=== PATIENT | female | born 1950 | race Caucasian/White ===

== ENCOUNTER 2021-06-08 10:54 | Observation (INO) | payer MEDICARE ==
[2021-06-04 10:16] LABS: BASOPHILS # (AUTO) 0.1 (0.0-0.1); BASOPHILS % 1.3 % (0.0-1.0); EOSINOPHILS # (AUTO) 0.9 (0.0-0.4); HEMATOCRIT 46.2 % (34.2-44.1); HEMOGLOBIN 14.5 g/dL (12.0-16.0); LYMPHOCYTES # (AUTO) 2.7 (1.0-3.2); LYMPHOCYTES % 36.1 % (18.0-39.1); MEAN CORPUSCULAR HEMOGLOBIN 29.3 pg (28-32); MEAN CORPUSCULAR HGB CONC 31.4 g/dL (31-35); MEAN CORPUSCULAR VOLUME 93.3 fL (81-99); MONOCYTES # (AUTO) 0.5 (0.2-0.8); NEUTROPHILS # (AUTO) 3.2 (2.1-6.9); NEUTROPHILS % 43.5 % (38.7-80.0); PLATELET COUNT 296 x10e3/uL (140-360); RED BLOOD COUNT 4.95 x10e6/uL (3.6-5.1); RED CELL DISTRIBUTION WIDTH 14.7 % (11.7-14.4)
[2021-06-04 10:44] LABS: ALBUMIN 3.7 g/dL (3.5-5.0); ALBUMIN/GLOBULIN RATIO 0.9 (0.8-2.0); ANION GAP 14.4 mmol/L (8-16); CALCIUM 9.5 mg/dL (8.4-10.2); CREATININE, SERUM 0.79 mg/dL (0.57-1.11); POTASSIUM 4.4 mmol/L (3.5-5.1)
[2021-06-08] VITALS (16 sets, daily range): BP systolic 92–120; BP diastolic 41–61
[2021-06-08] MEDS ORDERED: FENTANYL CITRATE/PF 100MCG/2 ML INJ ONE (11:20)
[2021-06-08] MEDS ORDERED: MIDAZOLAM HCL 2 MG/2 ML VIAL ONE ×2 (11:20→12:52)
[2021-06-08] MEDS ORDERED: HEPARIN SOD/SOD CHLORIDE 2,000 ML ONE (11:21)
[2021-06-08] MEDS ORDERED: IOPAMIDOL 300MG/ML 100 ML INFUS..BTL IV ONE (11:21)
[2021-06-08] MEDS ORDERED: SODIUM CHLORIDE 0.9% 1000ML 1,000 ML ONE (11:21)
[2021-06-08] MEDS ORDERED: LIDOCAINE HCL 2% LOCAL 20 ML VIAL ONE (11:21)
[2021-06-08] MEDS ORDERED: ALPRAZOLAM 0.5 MG TAB ONE (11:25)
[2021-06-08] MEDS ORDERED: DIPHENHYDRAMINE HCL 25 MG CAP ONE (11:25)
[2021-06-08] MEDS ORDERED: LORATADINE10 MG PO (11:47)
[2021-06-08] MEDS ORDERED: FAMOTIDINE20 MG PO (11:47)
[2021-06-08] MEDS ORDERED: ASPIRIN 325 MG TAB ONE (13:15)
[2021-06-08] MEDS ORDERED: PRASUGREL 10 MG TAB ONE (13:15)
[2021-06-08] MEDS ORDERED: ATROPINE SULFATE 0.1 MG/ML 10ML SYR ONE (15:38)
[2021-06-08] MEDS ORDERED: ONDANSETRON HCL INJ 2MG/ML 2ML 2 MG/ML VIAL IV PRN (16:45)
[2021-06-08] MEDS ORDERED: SODIUM CHLORIDE 0.9% 1000ML 1,000 ML IV SCH (16:45)
[2021-06-08] MEDS ORDERED: ACETAMINOPHEN 325 MG TAB PO PRN (16:45)
[2021-06-08] MEDS ORDERED: ZOLPIDEM TARTRATE 5 MG TAB PO PRN (21:00)
[2021-06-09] VITALS: BP 137/70
[2021-06-09 04:00] VITALS: BP 114/69
[2021-06-09 07:39] VITALS: BP 118/59
[2021-06-09] MEDS ORDERED: LORATADINE 10 MG TAB PO SCH (09:00)
[2021-06-09] MEDS ORDERED: FAMOTIDINE 20 MG TAB PO SCH (09:00)
[2021-06-09 09:42] VITALS: BP 118/59
== END 2021-06-09 10:10 | disposition home or self-care (01) ==
LOC: CATH LAB 10:54 → MED/SURG2 17:00
PROVIDERS: ADMIT Internal Medicine Interventional Cardiology; ATTEND Internal Medicine Interventional Cardiology
DX: I70.211 Atherosclerosis of native arteries of extremities with intermittent claudication, right leg (principal)
CPT/HCPCS: 36415; 37186; 37225; 75625; 76937; 80053; 85025; 96360; C1769 ×2; C1887; C1894 ×2; C2623 ×2; G0378 ×2; J2001; J2250; J3010; J7030 ×2; Q9967; 36247; 37228; 37229; 75716; 99152; 99153

== ENCOUNTER → 2021-09-07 | Day surgery (SDC) | payer MEDICARE ==
[2021-09-02 12:17] LABS: BASOPHILS # (AUTO) 0.1 (0.0-0.1); BASOPHILS % 1.4 % (0.0-1.0); EOSINOPHILS # (AUTO) 1.4 (0.0-0.4); EOSINOPHILS % 13.8 % (0.0-6.0); HEMATOCRIT 43.4 % (34.2-44.1); HEMOGLOBIN 13.8 g/dL (12.0-16.0); LYMPHOCYTES # (AUTO) 3.1 (1.0-3.2); LYMPHOCYTES % 31.1 % (18.0-39.1); MEAN CORPUSCULAR HEMOGLOBIN 29.6 pg (28-32); MEAN CORPUSCULAR HGB CONC 31.8 g/dL (31-35); MEAN CORPUSCULAR VOLUME 92.9 fL (81-99); MONOCYTES # (AUTO) 0.6 (0.2-0.8); MONOCYTES % 6.1 % (4.4-11.3); NEUTROPHILS # (AUTO) 4.7 (2.1-6.9); NEUTROPHILS % 47.3 % (38.7-80.0); PLATELET COUNT 413 x10e3/uL (140-360); RED BLOOD COUNT 4.67 x10e6/uL (3.6-5.1); RED CELL DISTRIBUTION WIDTH 13.7 % (11.7-14.4)
[2021-09-02 12:48] LABS: ALBUMIN 3.4 g/dL (3.5-5.0); ALBUMIN/GLOBULIN RATIO 0.8 (0.8-2.0); ANION GAP 12.6 mmol/L (8-16); CALCIUM 8.8 mg/dL (8.4-10.2); CREATININE, SERUM 0.75 mg/dL (0.57-1.11); POTASSIUM 3.6 mmol/L (3.5-5.1)
[~2021-09-07] VITALS: Ht 160 cm; Wt 74.8 kg
[2021-09-07] VITALS (7 sets, daily range): BP systolic 108–125; BP diastolic 55–67
[~2021-09-07] MED LIST: ALPRAZOLAM 0.5 MG TAB ONE; ASPIRIN EC81 MG PO; ATORVASTATIN CA20 MG PO; DIPHENHYDRAMINE HCL 25 MG CAP ONE; FAMOTIDINE20 MG PO; FENTANYL CITRATE/PF 100MCG/2 ML INJ ONE; HEPARIN SOD (PORCINE) 1000 UNIT/ML 30ML ONE; HEPARIN SOD/SOD CHLORIDE 2,000 ML ONE; IOPAMIDOL 370 MG/ML 200 ML INFUS..BTL INJ ONE; LIDOCAINE HCL 2% LOCAL 20 ML VIAL ONE; LORATADINE10 MG PO; MIDAZOLAM HCL 2 MG/2 ML VIAL ONE; NITROGLYCERIN/D5W 200 MCG/ML 250 ML ONE; PLAVIX75 MG PO; SODIUM CHLORIDE 0.9% 1000ML 1,000 ML ONE; VERAPAMIL HCL 2.5 MG/ML 2 ML VIAL ONE
== END | disposition home or self-care (01) ==
LOC: CATH LAB 09:24
PROVIDERS: ATTEND Internal Medicine Interventional Cardiology
DX: I25.119 Atherosclerotic heart disease of native coronary artery with unspecified angina pectoris (principal); R94.39 Abnormal result of other cardiovascular function study; I73.9 Peripheral vascular disease, unspecified; Z01.812 Encounter for preprocedural laboratory examination; Z20.822 Contact with and (suspected) exposure to COVID-19; Z79.02 Long term (current) use of antithrombotics/antiplatelets; Z79.82 Long term (current) use of aspirin
CPT/HCPCS: 36415; 76937; 80053; 83880; 85025; 93454; C1887; C1894; J1644; J2001; J2250; J3010; J7030; Q9967; U0002; 99152

== ENCOUNTER 2022-01-02 10:46 | Inpatient (IN) | payer MEDICARE ==
[~2022-01-02] VITALS: Ht 160 cm; Wt 74.8 kg
[~2022-01-02 10:46] MED LIST changes: -ALPRAZOLAM 0.5 MG TAB ONE; -DIPHENHYDRAMINE HCL 25 MG CAP ONE; -FENTANYL CITRATE/PF 100MCG/2 ML INJ ONE; -HEPARIN SOD (PORCINE) 1000 UNIT/ML 30ML ONE; -HEPARIN SOD/SOD CHLORIDE 2,000 ML ONE; -IOPAMIDOL 370 MG/ML 200 ML INFUS..BTL INJ ONE; -LIDOCAINE HCL 2% LOCAL 20 ML VIAL ONE; -MIDAZOLAM HCL 2 MG/2 ML VIAL ONE; -NITROGLYCERIN/D5W 200 MCG/ML 250 ML ONE; -SODIUM CHLORIDE 0.9% 1000ML 1,000 ML ONE; -VERAPAMIL HCL 2.5 MG/ML 2 ML VIAL ONE
[2022-01-02] MEDS ORDERED: SODIUM CHLORIDE 0.9% 1000ML 1,000 ML IV STA ×2 (10:49→11:59)
[2022-01-02] MEDS ORDERED: ONDANSETRON HCL INJ 2MG/ML 2ML 2 MG/ML VIAL IV ONE (11:15)
[2022-01-02 11:18] LABS: BASOPHILS # (AUTO) 0.1 (0.0-0.1); BASOPHILS % 0.5 % (0.0-1.0); EOSINOPHILS # (AUTO) 0.5 (0.0-0.4); EOSINOPHILS % 2.9 % (0.0-6.0); HEMATOCRIT 45.9 % (34.2-44.1); HEMOGLOBIN 14.7 g/dL (12.0-16.0); LYMPHOCYTES # (AUTO) 3.3 (1.0-3.2); LYMPHOCYTES % 21.5 % (18.0-39.1); MEAN CORPUSCULAR HEMOGLOBIN 28.1 pg (28-32); MEAN CORPUSCULAR VOLUME 87.8 fL (81-99); MONOCYTES % 6.2 % (4.4-11.3); NEUTROPHILS # (AUTO) 10.4 (2.1-6.9); NEUTROPHILS % 67.9 % (38.7-80.0); PLATELET COUNT 359 x10e3/uL (140-360); RED BLOOD COUNT 5.23 x10e6/uL (3.6-5.1); RED CELL DISTRIBUTION WIDTH 16.3 % (11.7-14.4)
[2022-01-02 11:28] LABS: INR 0.91; PARTIAL THROMBOPLASTIN TIME 21.8 seconds (23.8-35.5); PROTHROMBIN TIME 13.1 seconds (11.9-14.5)
[2022-01-02 11:36] LABS: ALANINE AMINOTRANSFERASE 13 IU/L (0-55); ALBUMIN 3.2 g/dL (3.5-5.0); ALBUMIN/GLOBULIN RATIO 0.9 (0.8-2.0); ALKALINE PHOSPHATASE 43 IU/L (40-150); BLOOD UREA NITROGEN 21 mg/dL (7-26); BUN/CREATININE RATIO 21 (6-25); CALCIUM 8.8 mg/dL (8.4-10.2); CARBON DIOXIDE 18 mmol/L (22-29); CHLORIDE 105 mmol/L (98-107); CREATINE KINASE 9 IU/L (29-168); CREATININE, SERUM 0.98 mg/dL (0.57-1.11); EST GLOMERULAR FILTRATION RATE 56 ML/MIN (60-); GLUCOSE 99 mg/dL (74-118); MAGNESIUM 2.1 MG/DL (1.3-2.1); SODIUM 140 mmol/L (136-145)
[2022-01-02] MEDS ORDERED: SODIUM CHLORIDE 0.9% 1000ML 1,000 ML ONE (12:14)
[2022-01-02] MEDS ORDERED: PROMETHAZINE 12.5MG/ NACL 0.9% 12.5 MG/50 ML BAG IV ONE (12:30)
[2022-01-02] MEDS ORDERED: PROMETHAZINE 12.5MG/ NACL 0.9% 50 ML ONE (12:40)
[2022-01-02 12:47] LABS: CLARITY,URINE SL CLOUDY (CLEAR); COLOR,URINE YELLOW (YELLOW); LEUKOCYTE ESTERASE ,URINE NEGATIVE (NEGATIVE); NITRITE,URINE NEGATIVE (NEGATIVE); PROTEIN,URINE DIPSTICK 1+ (NEGATIVE)
[2022-01-02 12:48] LABS: KETONES,URINE 2+ (NEGATIVE); URINE UROBILINOGEN 1 mg/dL (0.2 - 1)
[2022-01-02 13:02] LABS: BACTERIA,URINE MODERATE /HPF; EPITHELIAL CELLS,URINE MODERATE /LPF; MUCUS,URINE MANY (RARE); RBC,URINE 0-5 /HPF (0-5)
[2022-01-02] MEDS ORDERED: ONDANSETRON HCL INJ 2MG/ML 2ML 2 MG/ML VIAL IV PRN (13:45)
[2022-01-02] MEDS ORDERED: PROMETHAZINE 12.5MG/ NACL 0.9% 12.5 MG/50 ML BAG IV PRN (13:45)
[2022-01-02] MEDS: SODIUM CHLORIDE 0.9% 1000ML 1,000 ML IV SCH (15:00)
[2022-01-02] MEDS: METOCLOPRAMIDE HCL 10 MG/2ML VIAL IV SCH (17:15)
[2022-01-02 17:49] VITALS: BP 116/45
[2022-01-02] MEDS ORDERED: CLOPIDOGREL75 MG PO (18:09)
[2022-01-02] MEDS ORDERED: CORTIZONE-1028 G1 TOP (18:09)
[2022-01-02] MEDS ORDERED: BENADRYL ITCH28.3 GM TOP (18:09)
[2022-01-02] MEDS ORDERED: DOXYCYCLINE HY100 MG PO (18:09)
[2022-01-02] MEDS ORDERED: METO (18:09)
[2022-01-02] MEDS ORDERED: PREDNISOLO15 MG/5 ML PO (18:09)
[2022-01-02] MEDS ORDERED: METOPROLOL TART25 MG PO (18:09)
[2022-01-02] MEDS ORDERED: BENZONATATE100 MG PO (18:09)
[2022-01-02 20:00] VITALS: BP 106/55
[2022-01-02 20:26] VITALS: BP 116/45
[2022-01-02 20:27] VITALS: BP 116/45
[2022-01-02] MEDS ORDERED: ATORVASTATIN 20 MG TAB PO SCH (21:00)
[2022-01-03] VITALS (9 sets, daily range): BP systolic 96–126; BP diastolic 52–71
[2022-01-03] MEDS: SODIUM CHLORIDE 0.9% 1000ML 1,000 ML IV SCH ×3 (02:30→09:25)
[2022-01-03] MEDS: LACTOBACILLUS ACIDOPHILUS CAPSULE PO SCH ×3 (02:35→16:20)
[2022-01-03 05:16] LABS: BASOPHILS # (AUTO) 0.1 (0.0-0.1); BASOPHILS % 0.6 % (0.0-1.0); EOSINOPHILS # (AUTO) 0.6 (0.0-0.4); EOSINOPHILS % 4.7 % (0.0-6.0); HEMATOCRIT 36.1 % (34.2-44.1); HEMOGLOBIN 11.3 g/dL (12.0-16.0); LYMPHOCYTES # (AUTO) 3.6 (1.0-3.2); LYMPHOCYTES % 29.4 % (18.0-39.1); MEAN CORPUSCULAR HEMOGLOBIN 28.3 pg (28-32); MEAN CORPUSCULAR HGB CONC 31.3 g/dL (31-35); MEAN CORPUSCULAR VOLUME 90.3 fL (81-99); MONOCYTES # (AUTO) 0.9 (0.2-0.8); MONOCYTES % 7.6 % (4.4-11.3); NEUTROPHILS # (AUTO) 6.9 (2.1-6.9); NEUTROPHILS % 56.5 % (38.7-80.0); PLATELET COUNT 277 x10e3/uL (140-360); RED CELL DISTRIBUTION WIDTH 16.1 % (11.7-14.4)
[2022-01-03 05:50] LABS: ALBUMIN 2.4 g/dL (3.5-5.0); ANION GAP 11.3 mmol/L (8-16); CALCIUM 7.4 mg/dL (8.4-10.2); CREATININE, SERUM 0.73 mg/dL (0.57-1.11); POTASSIUM 3.3 mmol/L (3.5-5.1)
[2022-01-03 05:56] LABS: CREATINE KINASE MB 0.5 ng/mL (0-5.0)
[2022-01-03] MEDS: METOCLOPRAMIDE HCL 10 MG/2ML VIAL IV SCH ×4 (06:09→18:01)
[2022-01-03] MEDS: POTASSIUM CHLORIDE 20MEQ/100ML 100 ML IV SCH ×2 (08:00→16:19)
[2022-01-03] MEDS: ASPIRIN 81 MG ENTERIC COATED PO SCH (09:27)
[2022-01-03] MEDS: METOPROLOL TARTRATE 25 MG TAB PO SCH (09:28)
[2022-01-03] MEDS: PREDNISONE 20 MG TAB PO SCH (09:28)
[2022-01-03] MEDS: CLOPIDOGREL BISULFATE 75 MG TAB PO SCH (09:28)
[2022-01-03] MEDS ORDERED: CALCIUM GLUC 1 G/50 ML NACL 50 ML IV ONE ×2 (12:00→20:00)
[2022-01-03 14:07] LABS: CREATINE KINASE 16 IU/L (29-168)
[2022-01-03] MEDS ORDERED: ATORVASTATIN 40 MG TAB PO SCH (21:00)
[2022-01-03 21:13] LABS: CREATINE KINASE 17 IU/L (29-168)
[2022-01-04] VITALS: BP 113/50
[2022-01-04] MEDS: METOCLOPRAMIDE HCL 10 MG/2ML VIAL IV SCH ×3 (00:59→11:33)
[2022-01-04] MEDS: SODIUM CHLORIDE 0.9% 1000ML 1,000 ML IV SCH ×2 (03:22→05:45)
[2022-01-04 04:00] VITALS: BP 105/48
[2022-01-04 07:42] VITALS: BP 112/43
[2022-01-04 07:45] VITALS: BP 112/43
[2022-01-04] MEDS: ASPIRIN 81 MG ENTERIC COATED PO SCH (09:10)
[2022-01-04] MEDS: PREDNISONE 20 MG TAB PO SCH (09:11)
[2022-01-04] MEDS: METOPROLOL TARTRATE 25 MG TAB PO SCH (09:11)
[2022-01-04] MEDS: CLOPIDOGREL BISULFATE 75 MG TAB PO SCH (09:11)
[2022-01-04] MEDS: LACTOBACILLUS ACIDOPHILUS CAPSULE PO SCH (09:11)
[2022-01-04 11:31] VITALS: BP 113/44
[2022-01-04] MEDS ORDERED: PANTOPRAZOLE SO40 MG PO (12:52)
[2022-01-04] MEDS ORDERED: ONDANSETRON ODT4 MG PO (12:54)
[2022-01-04] MEDS ORDERED: POTASSIUM CHLORIDE 10MEQ EA PO ONE (13:30)
[2022-01-04] MEDS ORDERED: ONDANSETRON HCL 4 MG ORAL DISINTEGRATING TAB PO PRN (14:00)
[2022-01-04] MEDS ORDERED: PANTOPRAZOLE SOD 40 MG TABEC PO SCH (16:30)
[2022-01-04] MEDS ORDERED: METOCLOPRAMIDE HCL 10 MG TAB PO SCH (18:00)
== END 2022-01-04 15:30 | disposition home or self-care (01) | DRG 392 ==
LOC: ER 10:50 → ERHOLD 13:45 → MED/SURG3 15:23 → OBSVTOIN 01-03 06:25
PROVIDERS: ADMIT Internal Medicine; ATTEND Internal Medicine
DX: A08.39 Other viral enteritis (principal); E87.2 Acidosis; N39.0 Urinary tract infection, site not specified; I10 Essential (primary) hypertension; I25.10 Atherosclerotic heart disease of native coronary artery without angina pectoris; E78.5 Hyperlipidemia, unspecified; Z20.822 Contact with and (suspected) exposure to COVID-19; I73.9 Peripheral vascular disease, unspecified; F17.200 Nicotine dependence, unspecified, uncomplicated; L98.9 Disorder of the skin and subcutaneous tissue, unspecified; Z88.5 Allergy status to narcotic agent
CPT/HCPCS: 36415; 74022; 80053; 81001; 82550; 82553; 83735; 84484; 85025; 85610; 85730; 87086; 93005; 96360; 99284; G0378; J0696; J2405; J2550; J2765; J3480; J7030; J7512; U0002

== ENCOUNTER 2022-07-07 16:22 | Inpatient (IN) | payer MEDICARE ==
[~2022-07-07] VITALS: Ht 160 cm; Wt 78.9 kg
[2022-07-07] MEDS: ALBUTEROL/IPRATROPIUM 3 ML NEB NEB SCH (00:20)
[~2022-07-07 16:22] MED LIST changes: +BENADRYL ITCH28.3 GM TOP; +BENZONATATE100 MG PO; +CLOPIDOGREL75 MG PO; +CORTIZONE-1028 G1 TOP; +DOXYCYCLINE HY100 MG PO; +METO; +METOPROLOL TART25 MG PO; +ONDANSETRON ODT4 MG PO; +PANTOPRAZOLE SO40 MG PO; +PREDNISOLO15 MG/5 ML PO
[2022-07-07] MEDS ORDERED: ALBUTEROL/IPRATROPIUM 3 ML NEB NEB ONE (17:15)
[2022-07-07 17:26] LABS: BASOPHILS # (AUTO) 0.1 (0.0-0.1); BASOPHILS % 0.8 % (0.0-1.0); EOSINOPHILS # (AUTO) 0.4 (0.0-0.4); HEMATOCRIT 34.5 % (34.2-44.1); HEMOGLOBIN 9.9 g/dL (12.0-16.0); LYMPHOCYTES # (AUTO) 1.2 (1.0-3.2); LYMPHOCYTES % 9.1 % (18.0-39.1); MEAN CORPUSCULAR HEMOGLOBIN 24.1 pg (28-32); MEAN CORPUSCULAR HGB CONC 28.7 g/dL (31-35); MEAN CORPUSCULAR VOLUME 83.9 fL (81-99); MONOCYTES # (AUTO) 0.9 (0.2-0.8); MONOCYTES % 6.8 % (4.4-11.3); NEUTROPHILS # (AUTO) 10.4 (2.1-6.9); NEUTROPHILS % 79.7 % (38.7-80.0); PLATELET COUNT 479 x10e3/uL (140-360); RED BLOOD COUNT 4.11 x10e6/uL (3.6-5.1); RED CELL DISTRIBUTION WIDTH 16.9 % (11.7-14.4)
[2022-07-07 17:41] LABS: ALBUMIN 3.2 g/dL (3.5-5.0); ALBUMIN/GLOBULIN RATIO 0.9 (0.8-2.0); ANION GAP 18.4 mmol/L (8-16); CALCIUM 8.9 mg/dL (8.4-10.2); CREATININE, SERUM 0.8 mg/dL (0.57-1.11); MAGNESIUM 1.6 MG/DL (1.3-2.1); POTASSIUM 3.4 mmol/L (3.5-5.1)
[2022-07-07] MEDS ORDERED: ACETAMINOPHEN 325 MG TAB PO ONE (17:45)
[2022-07-07] MEDS ORDERED: SODIUM CHLORIDE 0.9% 1000ML 1,000 ML IV ONE (17:45)
[2022-07-07 17:47] LABS: CREATINE KINASE MB 0.5 ng/mL (0-5.0)
[2022-07-07] MEDS ORDERED: IOPAMIDOL 370 MG/ML 100 ML INFUS..BTL INJ ONE (18:13)
[2022-07-07 19:42] LABS: CLARITY,URINE SL CLOUDY (CLEAR); COLOR,URINE STRAW (YELLOW); KETONES,URINE 1+ (NEGATIVE); LEUKOCYTE ESTERASE ,URINE NEGATIVE (NEGATIVE); NITRITE,URINE POSITIVE (NEGATIVE); PROTEIN,URINE DIPSTICK NEGATIVE (NEGATIVE); URINE UROBILINOGEN 0.2 mg/dL (0.2 - 1)
[2022-07-07 19:54] LABS: BACTERIA,URINE MANY /HPF; EPITHELIAL CELLS,URINE RARE /LPF; WBC,URINE (MAN) 0-5 /HPF (0-5)
[2022-07-07] MEDS: SODIUM CHLORIDE 0.9% 1000ML 1,000 ML IV SCH (21:06)
[2022-07-07] MEDS ORDERED: ONDANSETRON HCL INJ 2MG/ML 2ML 2 MG/ML VIAL IV PRN (21:15)
[2022-07-07] MEDS ORDERED: METOPROLOL TARTRATE INJ 1 MG/ML VIAL IV PRN (21:15)
[2022-07-07 21:20] VITALS: BP 112/62
[2022-07-07 22:35] VITALS: BP 112/62
[2022-07-07 22:56] VITALS: BP 104/54
[2022-07-08] VITALS (8 sets, daily range): BP systolic 93–153; BP diastolic 48–67
[2022-07-08] MEDS: METHYLPREDNISOLONE SOD SUCC 40 MG/ML VIAL 1ML IV SCH ×4 (00:09→21:19)
[2022-07-08] MEDS ORDERED: NIACINAMIDE500 MG PO (00:36)
[2022-07-08] MEDS ORDERED: MINOCYCLINE HC100 M1 PO (00:36)
[2022-07-08] MEDS ORDERED: METOPROLOL SUCC25 MG PO (00:36)
[2022-07-08] MEDS ORDERED: PREDNISONE10 MG PO (00:36)
[2022-07-08] MEDS ORDERED: D3-5000125 MCG PO (00:39)
[2022-07-08] MEDS: ALBUTEROL/IPRATROPIUM 3 ML NEB NEB SCH ×5 (04:00→21:00)
[2022-07-08 04:54] LABS: BASOPHILS # (AUTO) 0.1 (0.0-0.1); BASOPHILS % 0.7 % (0.0-1.0); EOSINOPHILS % 0.3 % (0.0-6.0); HEMATOCRIT 28.8 % (34.2-44.1); HEMOGLOBIN 8.7 g/dL (12.0-16.0); LYMPHOCYTES % 8.7 % (18.0-39.1); MEAN CORPUSCULAR HEMOGLOBIN 24.5 pg (28-32); MEAN CORPUSCULAR HGB CONC 30.2 g/dL (31-35); MEAN CORPUSCULAR VOLUME 81.1 fL (81-99); MONOCYTES # (AUTO) 0.2 (0.2-0.8); MONOCYTES % 1.5 % (4.4-11.3); NEUTROPHILS # (AUTO) 9.9 (2.1-6.9); NEUTROPHILS % 88.1 % (38.7-80.0); PLATELET COUNT 412 x10e3/uL (140-360); RED BLOOD COUNT 3.55 x10e6/uL (3.6-5.1); RED CELL DISTRIBUTION WIDTH 16.8 % (11.7-14.4)
[2022-07-08 05:17] LABS: CALCIUM 8.4 mg/dL (8.4-10.2); CREATININE, SERUM 0.72 mg/dL (0.57-1.11)
[2022-07-08] MEDS: SODIUM CHLORIDE 0.9% 1000ML 1,000 ML IV SCH (05:27)
[2022-07-08 06:00] LABS: CREATINE KINASE MB 0.5 ng/mL (0-5.0)
[2022-07-08] MEDS ORDERED: POTASSIUM CHLORIDE 20 MEQ TAB CR PO ONE (13:00)
[2022-07-08] MEDS: PANTOPRAZOLE SOD 40 MG TABEC PO SCH (13:16)
[2022-07-08 13:46] LABS: CREATINE KINASE MB 0.5 ng/mL (0-5.0)
[2022-07-08] MEDS: NIACINAMIDE 500 MG PO SCH (16:48)
[2022-07-08] MEDS ORDERED: HYDROCORTISONE 1% CREAM 30 GM TUBE EXT SCH (17:00)
[2022-07-08] MEDS ORDERED: HYDROCORTISONE 1% CREAM 30 GM TUBE EXT PRN (17:00)
[2022-07-08] MEDS: ATORVASTATIN 40 MG TAB PO SCH (21:19)
[2022-07-08] MEDS ORDERED: SODIUM CHLORIDE 0.9% 100 ML ONE (21:40)
[2022-07-09] VITALS (8 sets, daily range): BP systolic 103–114; BP diastolic 47–67
[2022-07-09] MEDS: ALBUTEROL/IPRATROPIUM 3 ML NEB NEB SCH ×7 (00:25→22:10)
[2022-07-09] MEDS: PANTOPRAZOLE SOD 40 MG TABEC PO SCH ×2 (07:30→16:30)
[2022-07-09 07:37] LABS: BASOPHILS % 0.1 % (0.0-1.0); HEMOGLOBIN 7.9 g/dL (12.0-16.0); LYMPHOCYTES # (AUTO) 0.7 (1.0-3.2); LYMPHOCYTES % 4.2 % (18.0-39.1); MEAN CORPUSCULAR HEMOGLOBIN 24.5 pg (28-32); MEAN CORPUSCULAR HGB CONC 29.3 g/dL (31-35); MEAN CORPUSCULAR VOLUME 83.6 fL (81-99); MONOCYTES # (AUTO) 0.6 (0.2-0.8); MONOCYTES % 3.4 % (4.4-11.3); NEUTROPHILS # (AUTO) 15.3 (2.1-6.9); NEUTROPHILS % 91.6 % (38.7-80.0); PLATELET COUNT 442 x10e3/uL (140-360); RED BLOOD COUNT 3.23 x10e6/uL (3.6-5.1); RED CELL DISTRIBUTION WIDTH 16.9 % (11.7-14.4)
[2022-07-09 08:10] LABS: ALBUMIN 2.7 g/dL (3.5-5.0); ANION GAP 15.5 mmol/L (8-16); CALCIUM 8.6 mg/dL (8.4-10.2); CREATININE, SERUM 0.71 mg/dL (0.57-1.11); POTASSIUM 3.5 mmol/L (3.5-5.1)
[2022-07-09] MEDS: ASPIRIN 81 MG ENTERIC COATED PO SCH (09:00)
[2022-07-09] MEDS: CHOLECALCIFEROL 1,000 UNIT TAB PO SCH (09:00)
[2022-07-09] MEDS: METHYLPREDNISOLONE SOD SUCC 40 MG/ML VIAL 1ML IV SCH ×2 (09:00→21:20)
[2022-07-09] MEDS: NIACINAMIDE 500 MG PO SCH ×2 (09:00→17:00)
[2022-07-09] MEDS: CLOPIDOGREL BISULFATE 75 MG TAB PO SCH (12:55)
[2022-07-09 13:03] LABS: FERRITIN 17.94 ng/mL (4.63-204.00)
[2022-07-09] MEDS ORDERED: POLYETHYLENE GLYCOL 3350 17 GM PACK PO PRN (15:30)
[2022-07-09] MEDS ORDERED: SODIUM FERRIC GLUCONATE COMPLX 125 MG in SODIUM CHLORIDE 0.9% 100 ML IV SCH (18:00)
[2022-07-09] MEDS: ATORVASTATIN 40 MG TAB PO SCH (21:21)
[2022-07-10] VITALS (7 sets, daily range): BP systolic 121–153; BP diastolic 57–84
[2022-07-10] MEDS: ALBUTEROL/IPRATROPIUM 3 ML NEB NEB SCH ×6 (02:10→22:10)
[2022-07-10 08:52] LABS: BASOPHILS % 0.2 % (0.0-1.0); HEMATOCRIT 28.9 % (34.2-44.1); HEMOGLOBIN 8.6 g/dL (12.0-16.0); LYMPHOCYTES % 5.1 % (18.0-39.1); MEAN CORPUSCULAR HEMOGLOBIN 24.2 pg (28-32); MEAN CORPUSCULAR HGB CONC 29.8 g/dL (31-35); MEAN CORPUSCULAR VOLUME 81.4 fL (81-99); MONOCYTES # (AUTO) 0.6 (0.2-0.8); MONOCYTES % 2.9 % (4.4-11.3); NEUTROPHILS % 90.4 % (38.7-80.0); PLATELET COUNT 429 x10e3/uL (140-360); RED BLOOD COUNT 3.55 x10e6/uL (3.6-5.1)
[2022-07-10] MEDS: NIACINAMIDE 500 MG PO SCH ×2 (09:00→16:57)
[2022-07-10 09:07] LABS: ANION GAP 15.8 mmol/L (8-16); CALCIUM 8.5 mg/dL (8.4-10.2); CREATININE, SERUM 0.84 mg/dL (0.57-1.11); POTASSIUM 3.8 mmol/L (3.5-5.1)
[2022-07-10] MEDS: PANTOPRAZOLE SOD 40 MG TABEC PO SCH ×2 (09:32→17:09)
[2022-07-10] MEDS: CHOLECALCIFEROL 1,000 UNIT TAB PO SCH (09:32)
[2022-07-10] MEDS: CLOPIDOGREL BISULFATE 75 MG TAB PO SCH (09:33)
[2022-07-10] MEDS: ASPIRIN 81 MG ENTERIC COATED PO SCH (09:33)
[2022-07-10] MEDS: METOPROLOL SUCCINATE 50 MG TAB XL PO SCH (09:33)
[2022-07-10] MEDS: SODIUM FERRIC GLUCONATE COMPLX 125 MG in SODIUM CHLORIDE 0.9% 100 ML IV SCH (10:34)
[2022-07-10] MEDS: ATORVASTATIN 40 MG TAB PO SCH (21:15)
[2022-07-10] MEDS: METHYLPREDNISOLONE SOD SUCC 40 MG/ML VIAL 1ML IV SCH (21:15)
[2022-07-11] VITALS: BP 116/84
[2022-07-11] MEDS: ALBUTEROL/IPRATROPIUM 3 ML NEB NEB SCH ×3 (02:50→10:41)
[2022-07-11 04:00] VITALS: BP 121/56
[2022-07-11 04:40] LABS: BASOPHILS % 0.1 % (0.0-1.0); HEMATOCRIT 28.1 % (34.2-44.1); HEMOGLOBIN 8.2 g/dL (12.0-16.0); LYMPHOCYTES # (AUTO) 0.7 (1.0-3.2); LYMPHOCYTES % 4.9 % (18.0-39.1); MEAN CORPUSCULAR HGB CONC 29.2 g/dL (31-35); MEAN CORPUSCULAR VOLUME 82.4 fL (81-99); MONOCYTES # (AUTO) 0.5 (0.2-0.8); MONOCYTES % 3.2 % (4.4-11.3); NEUTROPHILS # (AUTO) 13.2 (2.1-6.9); NEUTROPHILS % 90.1 % (38.7-80.0); PLATELET COUNT 403 x10e3/uL (140-360); RED BLOOD COUNT 3.41 x10e6/uL (3.6-5.1); RED CELL DISTRIBUTION WIDTH 17.2 % (11.7-14.4)
[2022-07-11 05:00] LABS: ANION GAP 12.4 mmol/L (8-16); CALCIUM 8.5 mg/dL (8.4-10.2); CREATININE, SERUM 0.77 mg/dL (0.57-1.11); POTASSIUM 3.4 mmol/L (3.5-5.1)
[2022-07-11 08:01] VITALS: BP 128/67
[2022-07-11 08:18] VITALS: BP 128/67
[2022-07-11] MEDS ORDERED: POTASSIUM CHLORIDE 20 MEQ TAB CR PO ONE (10:00)
[2022-07-11] MEDS: PANTOPRAZOLE SOD 40 MG TABEC PO SCH (10:02)
[2022-07-11] MEDS: ASPIRIN 81 MG ENTERIC COATED PO SCH (10:03)
[2022-07-11] MEDS: METHYLPREDNISOLONE SOD SUCC 40 MG/ML VIAL 1ML IV SCH (10:03)
[2022-07-11] MEDS: CLOPIDOGREL BISULFATE 75 MG TAB PO SCH (10:04)
[2022-07-11] MEDS: METOPROLOL SUCCINATE 50 MG TAB XL PO SCH (10:04)
[2022-07-11] MEDS: NIACINAMIDE 500 MG PO SCH (10:04)
[2022-07-11] MEDS: SODIUM FERRIC GLUCONATE COMPLX 125 MG in SODIUM CHLORIDE 0.9% 100 ML IV SCH (10:05)
[2022-07-11] MEDS: CHOLECALCIFEROL 1,000 UNIT TAB PO SCH (10:05)
[2022-07-11] MEDS ORDERED: VITAMIN C500 MG PO ×2 (11:07)
[2022-07-11] MEDS ORDERED: TOPROL XL50 MG PO (11:07)
[2022-07-11] MEDS ORDERED: IRON325 M1 PO (11:07)
[2022-07-11] MEDS ORDERED: PREDNISONE10 MG PO (11:07)
[2022-07-11] MEDS ORDERED: Albuterol/Ipratropium Nebulize NEB (11:07)
[2022-07-11] MEDS ORDERED: ONDANSETRON HCL 4 MG ORAL DISINTEGRATING TAB PO PRN (11:30)
[2022-07-11 12:01] VITALS: BP 137/61
[2022-07-11] MEDS ORDERED: AZITHROMYCIN 250 MG TAB PO SCH (20:00)
== END 2022-07-11 14:42 | disposition home or self-care (01) | DRG 191 ==
LOC: ER 16:40 → ERHOLD 20:25 → MED/SURG 22:29 → OBSVTOIN 07-09 17:17
PROVIDERS: ADMIT Internal Medicine; ATTEND Internal Medicine
DX: J43.9 Emphysema, unspecified (principal); L12.0 Bullous pemphigoid; I10 Essential (primary) hypertension; I25.10 Atherosclerotic heart disease of native coronary artery without angina pectoris; R00.0 Tachycardia, unspecified; K21.9 Gastro-esophageal reflux disease without esophagitis; F17.210 Nicotine dependence, cigarettes, uncomplicated; E87.6 Hypokalemia; K44.9 Diaphragmatic hernia without obstruction or gangrene; E78.5 Hyperlipidemia, unspecified; Z20.822 Contact with and (suspected) exposure to COVID-19; Z95.820 Peripheral vascular angioplasty status with implants and grafts; D64.9 Anemia, unspecified; D50.9 Iron deficiency anemia, unspecified; R09.02 Hypoxemia
CPT/HCPCS: 0223U; 36415; 71045; 71260; 80048; 80053; 81001; 82550; 82553; 82728; 83540; 83605; 83735; 83880; 84466; 84484; 85025; 85379; 87040; 87400; 93005; 94640; 94799; 99285; G0378; J0456; J0696; J2916; J2920; J7030; J7050; Q9967

== ENCOUNTER → 2023-07-06 | Outpatient (REF) | payer MEDICARE ==
[~2023-07-06] MED LIST changes: +Albuterol/Ipratropium Nebulize NEB; +D3-5000125 MCG PO; +IRON325 M1 PO; +METOPROLOL SUCC25 MG PO; +MINOCYCLINE HC100 M1 PO; +NIACINAMIDE500 MG PO; +PREDNISONE10 MG PO; +TOPROL XL50 MG PO; +VITAMIN C500 MG PO
== END ==
LOC: CT 11:23
PROVIDERS: ATTEND Internal Medicine
DX: R06.09 Other forms of dyspnea (principal)
CPT/HCPCS: 71250

== ENCOUNTER → 2024-07-26 | Outpatient (REF) | payer MEDICARE | LOC: CT 12:59 | PROVIDERS: ATTEND Internal Medicine | DX: R06.09 Other forms of dyspnea (principal) | CPT/HCPCS: 71250 ==